=== PATIENT | female | born 1970 | race Caucasian/White ===

== ENCOUNTER 2017-10-25 10:32 | Emergency (ER) | payer BC ==
[2017-10-25 10:57] VITALS: BP 147/74
== END 2017-10-25 13:30 | disposition home or self-care (01) ==
LOC: ED 10:32
DX: S01.01XA Laceration without foreign body of scalp, initial encounter (principal); W17.89XA Other fall from one level to another, initial encounter; Y93.89 Activity, other specified; Y92.89 Other specified places as the place of occurrence of the external cause; Y99.8 Other external cause status